=== PATIENT | male | born 1995 | race Two or more races ===

== ENCOUNTER 2021-04-15 02:21 | Inpatient (IN) | payer MEDICAID, OTHER ==
[~2021-04-15] VITALS: Ht 182.9 cm; Wt 124.0 kg
[2021-04-15] MEDS ORDERED: SODIUM CHLORIDE 0.9% 1,000 ML IV ONE ×3 (03:00→13:30)
[2021-04-15] MEDS ORDERED: LORazepam 2MG/ML-1ML VIAL IV ONE ×2 (03:00)
[2021-04-15 04:17] LABS: Basophils # (auto) 0.1 10 ^3/uL (0-0.2); Basophils % (auto) 0.8 % (0.0-2.0); Eosinophils # (auto) 0.1 10 ^3/uL (0-0.8); Eosinophils % (auto) 1.4 % (0.0-7.0); Hematocrit 42.8 % (41.0-53.0); Hemoglobin 15.5 g/dL (13.5-17.5); Lymphocytes % (auto) 29.1 % (10.0-50.0); Mean Corpuscular Hemoglobin 32.3 pg (28.0-32.0); Mean Corpuscular Hgb Conc. 36.2 g/dL (32.0-36.0); Mean Corpuscular Volume 89.3 fL (80.0-100.0); Monocytes # (auto) 0.4 10 ^3/uL (0-1.3); Monocytes % (auto) 6.1 % (0.0-12.0); Neutrophils # (auto) 4.4 10 ^3/uL (1.6-8.6); Neutrophils % (auto) 62.6 % (37.0-80.0); Nucleated Red Blood Cells % 0.2 %; Red Blood Cells 4.79 10^6/uL (4.5-5.90)
[2021-04-15 04:35] LABS: Albumin 3.8 g/dL (3.4-5.0); Calcium 8.4 mg/dL (8.5-10.1); Potassium 3.8 mmol/L (3.5-5.1)
[2021-04-15 04:40] LABS: BUN/Creatinine Ratio 15.1; Bilirubin, Total 0.3 mg/dL (0.2-1.0); Total Protein 6.9 g/dL (6.4-8.2)
[2021-04-15] MEDS ORDERED: levETIRAcetam 500 MG/5ML INJ IV ONE (05:50)
[2021-04-15 11:20] LABS: Urine Bacteria NONE SEEN /hpf (None Seen); Urine Blood Negative /uL (Negative); Urine Mucus FEW (None Seen); Urine Specific Gravity 1.013 (1.001-1.035); Urine WBC <1 /hpf (0 - 3)
[2021-04-15 11:28] LABS: Alcohol, Urine < 3.0 mg/dL (0-10); Amphetamine Screen, Urine NEGATIVE (NEGATIVE); Barbiturate Scree,Urine NEGATIVE (NEGATIVE); Benzodiazephine Screen, Urine NEGATIVE (NEGATIVE); Cannabinoid Screen, Urine NEGATIVE (NEGATIVE); Cocaine Screen, Urine NEGATIVE (NEGATIVE); Opiate Scree,Urine NEGATIVE (NEGATIVE); Phencyclidine Screen, Urine NEGATIVE (NEGATIVE)
[2021-04-15] MEDS ORDERED: TOPIRAMATE 25 MG TAB PO ONE (12:00)
[2021-04-15] MEDS ORDERED: levETIRAcetam 500 MG TAB PO ONE (12:00)
[2021-04-15] MEDS ORDERED: TOPI50TA32 PO (12:04)
[2021-04-15] MEDS ORDERED: KEP500T PO (12:04)
[2021-04-15] MEDS ORDERED: DIVA500T4 PO (12:04)
[2021-04-15] MEDS ORDERED: MORPHINE SULFATE INJECTION 2 MG/ML SYRG IV PRN (13:30)
[2021-04-15] MEDS ORDERED: ACETAMINOPHEN 500 MG TAB PO PRN (13:30)
[2021-04-15] MEDS ORDERED: ONDANSETRON HCL 4 MG/2 ML VIAL IV PRN (13:30)
[2021-04-15] MEDS ORDERED: DOCUSATE CALCIUM 240 MG CAP PO PRN (13:30)
[2021-04-15] MEDS ORDERED: hydrALAZINE HCL 20 MG/ML VL IV PRN (13:30)
[2021-04-15] MEDS ORDERED: MORPHINE SULFATE 4 MG/ML SYR/VIAL IV PRN (13:30)
[2021-04-15] MEDS ORDERED: NITROGLYCERIN 0.4 MG SL TAB SL PRN (13:30)
[2021-04-15] MEDS ORDERED: LORazepam 2MG/ML-1ML VIAL IV PRN ×2 (13:30→20:30)
[2021-04-15] MEDS ORDERED: IOHEXOL 300 MG/ML 100ML BOTTLE IJ ONE (15:03)
[2021-04-15] MEDS: SODIUM CHLORIDE 0.9% 1,000 ML IV SCH ×2 (15:29→21:00)
[2021-04-15] MEDS ORDERED: TOPIRAMATE 25 MG TAB PO SCH (22:00)
[2021-04-15] MEDS ORDERED: levETIRAcetam 500 MG TAB PO SCH (22:00)
[2021-04-15] MEDS: TOPIRAMATE 25 MG TAB PO SCH (22:18)
[2021-04-16] MEDS: SODIUM CHLORIDE 0.9% 1,000 ML IV SCH ×3 (03:55→18:30)
[2021-04-16 06:31] LABS: Basophils # (auto) 0.1 10 ^3/uL (0-0.2); Basophils % (auto) 1.2 % (0.0-2.0); Eosinophils # (auto) 0.1 10 ^3/uL (0-0.8); Eosinophils % (auto) 2.1 % (0.0-7.0); Hematocrit 43.8 % (41.0-53.0); Lymphocytes # (auto) 3.2 10 ^3/uL (0.4-5.4); Lymphocytes % (auto) 45.3 % (10.0-50.0); Mean Corpuscular Hemoglobin 32.8 pg (28.0-32.0); Monocytes # (auto) 0.5 10 ^3/uL (0-1.3); Monocytes % (auto) 7.4 % (0.0-12.0); Neutrophils # (auto) 3.1 10 ^3/uL (1.6-8.6); Nucleated Red Blood Cells % 0.2 %; Red Blood Cells 4.87 10^6/uL (4.5-5.90); Red Cell Distribution Width 12.8 % (11.8-14.3)
[2021-04-16 06:44] LABS: Mean Corpuscular Hgb Conc. 36.5 g/dL (32.0-36.0)
[2021-04-16 06:56] LABS: Potassium 4.5 mmol/L (3.5-5.1)
[2021-04-16 07:03] LABS: Albumin 3.9 g/dL (3.4-5.0); Bilirubin, Total 0.6 mg/dL (0.2-1.0); Calcium 8.8 mg/dL (8.5-10.1); Magnesium 2.4 mg/dL (1.6-2.6); Total Protein 7.1 g/dL (6.4-8.2)
[2021-04-16 07:16] LABS: INR 1.06 (0.9-1.15)
[2021-04-16 07:40] LABS: Beta HCG, Quantitative < 1 mlU/mL (< 1); Lactate Dehydrogenase 281 U/L (87-241)
[2021-04-16] MEDS: PANTOPRAZOLE 40 MG TAB PO SCH (09:53)
[2021-04-16] MEDS: TOPIRAMATE 25 MG TAB PO SCH ×2 (09:53→22:26)
[2021-04-16] MEDS: ENOXAPARIN SOD 40 MG/0.4 ML SYRINGE SC SCH ×2 (09:53→10:00)
[2021-04-16] MEDS ORDERED: ASPirin 81 mg TAB PO ONE (12:00)
[2021-04-16] MEDS ORDERED: METOPROLOL TARTRATE 50 MG TAB PO ONE (12:00)
[2021-04-16 13:00] VITALS: BP 118/63
[2021-04-16 17:00] VITALS: BP 137/60
[2021-04-16 21:50] VITALS: BP 106/55
[2021-04-16] MEDS ORDERED: METOPROLOL TARTRATE 25 MG TAB PO SCH (22:00)
[2021-04-16] MEDS ORDERED: TEMAZEPAM 15 MG CAP PO ONE (22:45)
[2021-04-17] MEDS: SODIUM CHLORIDE 0.9% 1,000 ML IV SCH (01:13)
[2021-04-17 05:05] VITALS: BP 104/60
[2021-04-17 09:00] VITALS: BP 127/62
[2021-04-17] MEDS: TOPIRAMATE 25 MG TAB PO SCH ×2 (10:33→22:59)
[2021-04-17] MEDS: PANTOPRAZOLE 40 MG TAB PO SCH (10:33)
[2021-04-17] MEDS: ASPirin 81 mg TAB PO SCH (10:33)
[2021-04-17] MEDS: ENOXAPARIN SOD 40 MG/0.4 ML SYRINGE SC SCH (10:34)
[2021-04-17] MEDS ORDERED: METOPROLOL TARTRATE 1MG/1ML-5ML VIAL IV ONE (12:45)
[2021-04-17 13:26] VITALS: BP 107/61
[2021-04-17] MEDS ORDERED: DIGOXIN (250MCG/ML) 2 ML AMPULE IV ONE (13:45)
[2021-04-17] MEDS ORDERED: TEMAZEPAM 15 MG CAP PO PRN (15:45)
[2021-04-17] MEDS ORDERED: THIAMINE HCL 100 MG TAB PO ONE (15:45)
[2021-04-17] MEDS ORDERED: MULTIPLE VITAMIN TAB PO ONE (15:45)
[2021-04-17 16:48] VITALS: BP 125/67
[2021-04-17 22:00] VITALS: BP 116/72
[2021-04-17 23:32] VITALS: BP 125/67
[2021-04-18 04:36] VITALS: BP_SYST 118; BP_SYST 139; BP_DIAS 60; BP_DIAS 79
[2021-04-18 08:20] VITALS: BP 107/63
[2021-04-18] MEDS: ASPirin 81 mg TAB PO SCH (09:48)
[2021-04-18] MEDS: PANTOPRAZOLE 40 MG TAB PO SCH (09:49)
[2021-04-18] MEDS: TOPIRAMATE 25 MG TAB PO SCH (09:50)
[2021-04-18] MEDS: ENOXAPARIN SOD 40 MG/0.4 ML SYRINGE SC SCH (09:51)
[2021-04-18] MEDS ORDERED: THIAMINE HCL 100 MG TAB PO SCH (10:00)
[2021-04-18] MEDS ORDERED: MULTIPLE VITAMIN TAB PO SCH (10:00)
[2021-04-18] MEDS ORDERED: ASPI325T4 PO (11:02)
[2021-04-18] MEDS ORDERED: METO25TA5 PO (11:12)
[2021-04-18 12:28] VITALS: BP 112/69
[2021-04-18 12:30] VITALS: BP 112/69
== END 2021-04-18 13:20 | disposition home or self-care (01) | DRG 53 ==
LOC: ER 02:21 → EDBD 02:21 → TELE 13:20 → WEST WING 04-16 10:54 → TELE-WESTW 04-16 11:58
PROVIDERS: ADMIT Family Medicine; ATTEND Internal Medicine
PROC: 5A09357 Assistance with Respiratory Ventilation, Less than 24 Consecutive Hours, Continuous Positive Airway Pressure (ICD-10-PCS; principal; 2021-04-17)
DX: G40.909 Epilepsy, unspecified, not intractable, without status epilepticus (principal); E66.01 Morbid (severe) obesity due to excess calories; I48.0 Paroxysmal atrial fibrillation; F10.10 Alcohol abuse, uncomplicated; G25.81 Restless legs syndrome; F17.200 Nicotine dependence, unspecified, uncomplicated; Z20.822 Contact with and (suspected) exposure to COVID-19; G47.00 Insomnia, unspecified; Z79.899 Other long term (current) drug therapy; Z82.0 Family history of epilepsy and other diseases of the nervous system; Z83.3 Family history of diabetes mellitus; Z85.47 Personal history of malignant neoplasm of testis; Z68.37 Body mass index [BMI] 37.0-37.9, adult; Z82.49 Family history of ischemic heart disease and other diseases of the circulatory system; Y90.0 Blood alcohol level of less than 20 mg/100 ml
CPT/HCPCS: 36415; 70450; 74177; 80051; 80053; 80164; 80307; 81001; 82105; 82542; 82550; 83605; 83615; 83735; 84443; 84702; 85025; 85610; 87426; 93005; 93306; 94660; 95819; 96361; 96365; 96366; 96375; 96376; G0378; J7060